=== PATIENT | male | born 1985 | race American Indian/Alaskan Native ===

== ENCOUNTER 2020-07-21 06:23 | Day surgery (SDC) | payer BC ==
--- NOTE | 2020-07-21 06:57 | Anesthesia Consultation ---
Anesthesia Consult and Med Hx Date of service: 07/21/20 - Airway Anesthetic Teeth Evaluation: Good ROM Head & Neck: Adequate Mental/Hyoid Distance: Adequate Mallampati Class: Class II Intubation Access Assessment: Good - Pulmonary Exam CTA: Yes - Cardiac Exam Cardiac Exam: RRR - Pre-Operative Health Status ASA Pre-Surgery Classification: ASA2 Proposed Anesthetic Plan: General - Pulmonary Hx Smoking: Yes Hx Asthma: Yes COPD: No Hx Pneumonia: No Hx Sleep Apnea: No (RASHEED PRE SCREEN LOW RISK) - Cardiovascular System Hx Hypertension: No Hx Heart Attack/AMI: No Hx Pacemaker: No Hx Internal Defibrillator: No Hx Heart Murmur: No - Central Nervous System Hx Seizures: No Hx Back Pain: Yes ( TEENAGER MOSTLY) Hx Psychiatric Problems: Yes - Endocrine Hx End Stage Renal Disease: No Hx Cirrhosis: No - Hematic Hx Anemia: No Hx Sickle Cell Disease: No - Other Systems 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
--- NOTE | 2020-07-21 06:58 | Anesthesia Day of Surgery ---
Anesthesia Day of Surgery - Day of Surgery Patient Examined: Yes Patient H&P Reviewed: Yes Patient is NPO: Yes
[2020-07-21] MEDS ORDERED: LACTATED RINGERS 1,000 ML IV SCH (07:00)
[2020-07-21] MEDS ORDERED: MIDAZOLAM 2 MG/2 ML INJ IV NR (07:00)
[2020-07-21] MEDS ORDERED: ceFAZolin/Water 2 GM/20 ML 2 GM/20 ML SYRINGE IV ONE (07:32)
[2020-07-21] MEDS ORDERED: ceFAZolin/STERILE WATER 2 GM/20 ML SYRINGE IV NR (08:00)
[2020-07-21] MEDS ORDERED: ONDANSETRON 4 MG/2 ML INJ ONE (09:00)
[2020-07-21] MEDS ORDERED: LIDOCAINE MPF (2%) 20 MG/1 ML VIAL 5 ML ONE (09:00)
[2020-07-21] MEDS ORDERED: KETOROLAC 30 MG/1 ML INJ ONE (09:00)
[2020-07-21] MEDS ORDERED: propofoL 200 MG/20 ML VIAL IV ONE (09:00)
[2020-07-21] MEDS ORDERED: fentaNYL 100 MCG/2 ML INJ ONE (09:00)
[2020-07-21] MEDS ORDERED: dexAMETHasone 20 MG/5 ML VIAL ONE (09:54)
--- NOTE | 2020-07-21 10:03 | Short Stay Summary ---
Short Stay Documentation Date of service: 07/21/20 - History H&P: obtained from office - Allergies and Medications Current Medications: Allergies No Known Allergies Allergy (Verified 07/16/20 14:43) Home Medications Medication Instructions Recorded Confirmed Last Taken Type B3/B6/Folic/Zinc/Copper/Co-Q10 1 tab PO DAILY 07/16/20 07/16/20 Unknown History [Nicadan Zx Tablet] Cetirizine HCl/Pseudoephedrine 1 each PO DAILY 07/16/20 07/16/20 Unknown History [Zyrtec-D Tablet] [place]-3 Fatty Acids/Fish Oil [Fish 1 each PO DAILY 07/16/20 07/16/20 Unknown History Oil] Ubidecarenone/Red Yeast Rice [Co 1 cap PO DAILY 07/16/20 07/16/20 Unknown History Q-10 Red Yeast Rice Softgel] Vitamin D (Nf) 1 tab PO DAILY 07/16/20 07/16/20 Unknown History Active Medications Cefazolin Sodium (Cefazolin/Sterile Water 2 Gm/20 Ml Syringe) 2 gm IV PREOP NR Stop: 07/21/20 23:00 Lactated Ringer's (Lactated Ringers) 1,000 mls @ 100 mls/hr IV DIRECT SHARDA Midazolam HCl (Midazolam 2 Mg/2 Ml Inj) 2 mg IV PREOP NR Stop: 07/21/20 23:59 - Brief post op/procedure progress note Date of procedure: 07/21/20 Pre-op diagnosis: recurrent uti, hematuria Post-op diagnosis: same Procedure: cysto, left rpg Anesthesia: GETA Findings: normal exam Surgeon: BARBIE FLYNN Estimated blood loss: none Condition: stable - Hospital course Hospital course: cipro & ultram on chart - Disposition Condition at discharge: Stable Disposition: DC-01 TO HOME OR SELFCARE Short Stay Discharge Plan Follow up with: PRIMARY CARE, [Primary Care Provider] - 7 Days
--- NOTE | 2020-07-21 10:18 | Operative Report ---
PREOPERATIVE DIAGNOSES: Recurrent urinary tract infection, hematuria. POSTOPERATIVE DIAGNOSES: Recurrent urinary tract infection, hematuria. PROCEDURE: Cystoscopy, left retrograde pyelogram. SURGEON: Dr. Gopal Osuna ANESTHESIA: General. ESTIMATED BLOOD LOSS: Minimal. FLUIDS: Crystalloid. COMPLICATIONS: No complications. INDICATIONS: This patient is a 35-year-old gentleman with history of recurrent urinary tract infections. The patient has had cystoscopies several years ago in the [facility]. He continues to have recurrent urinary tract infections. He underwent CT abdomen and pelvis on 06/30/2020, which was unremarkable and was noted to have a right phlebolith in the distal ureter and in the distal pelvis, but no hydronephrosis. He presents now for surgical intervention. DESCRIPTION OF PROCEDURE: The patient was taken to the operative suite, placed in a supine position. After adequate general anesthesia, placed in a dorsal lithotomy position, prepped and draped in a sterile fashion. Pancystourethroscopy was performed with a 22-Malagasy Storz cystoscope, no urethral abnormalities. His prostate was minimally obstructing his bladder. No tumors or stones were noted. No trabeculation. He did have a lateral angulation of his ureters, making it difficult to visualize the ureter on the left. I was able to shoot a retrograde pyelogram using 8 mL of contrast with no filling defects or obstruction. On the right side, I could not cannulate the ureter just due to the angulation despite using curved wire or curved catheter. He has no hydronephrosis. I wanted to make sure there was no stricture disease in the urethra. Bladder was drained. Rectal exam was benign. He was extubated and taken to recovery room in stable condition. We will encourage hydration to minimize caffeine, alcohol, spicy foods. He will go home on Cipro and Ultram. JOB# [id number] [facility]
--- NOTE | 2020-07-21 10:33 | Fluoroscopy Report ---
4 fluoroscopic images submitted Indication: Intraoperative localization Impression: 4 images of the abdomen were submitted for documentation purposes with radiology involve ment. Left-sided retrograde pyelogram was performed. Please refer to the operative note for complet e details. Fluoroscopic time: 0.1 minutes Signer Name: Mich Martínez MD Signed: 07/21/2020 10:28 AM Workstation Name: [id number]
[2020-07-21 11:29] VITALS: BP 131/72
--- NOTE | 2020-07-21 14:00 | Post Anesthesia Evaluation ---
- Post Anesthesia Evaluation Patient Participated: Yes Airway Patent: Yes Stable Respiratory Function: Yes Nausea/Vomiting: No Temp > 96.8F: Yes Pain Manageable: Yes Adequeate Hydration: Yes Anesthesia Complications: No Block Receding Appropriately: Not Applicable Patient on Ventilator: No
== END 2020-07-21 11:27 | disposition home or self-care (01) ==
LOC: OR 06:23
PROVIDERS: ATTEND Urology
DX: N39.0 Urinary tract infection, site not specified (principal); R31.9 Hematuria, unspecified; F17.210 Nicotine dependence, cigarettes, uncomplicated; J45.909 Unspecified asthma, uncomplicated; G43.909 Migraine, unspecified, not intractable, without status migrainosus; F32.9 Major depressive disorder, single episode, unspecified; Z72.89 Other problems related to lifestyle; Z79.899 Other long term (current) drug therapy; Z98.890 Other specified postprocedural states
CPT/HCPCS: 52005; 74420; C1758; C1769; J0690; J1100; J1885; J2250; J2405; J2704; J3010; J7120; Q9967